=== PATIENT | male | born 1955 | race Hispanic/Latino ===

== ENCOUNTER 2024-04-04 17:02 | Emergency (ER) | payer OTHER ==
[~2024-04-04] VITALS: Ht 165.1 cm; Wt 83.0 kg
[2024-04-04 17:31] VITALS: BP 130/61; PULSE 62; RESP 20; TEMP 98.6; O2SAT 99
--- NOTE | 2024-04-04 17:40 | ERN ---
ED Note History of Present Illness Stated Complaint: SENT BY [place] Chief Complaint: Head Injury Time Seen by MD: 17:21 Time Seen by Midlevel: 17:21 Dictation: 69-year-old male presents to the emergency department due to reported having a severe headache to the left parietal area due to having sustained a fall 2 weeks ago in his house. Patient states that he tripped and landed on the left side of his head against the concrete for which he felt severely days. He denies having sustained any loss of consciousness associated with this. However, he is concerned that the headache has not gone away. At that time, he opted not to seek medical attention believing that the headache will go away. Since then, he denies having any nausea, vomiting or changes in vision but does report feeling some fogginess. Upon initial evaluation, patient presents with a normal neurologic examination. 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 Initial Vital Sign VS Vital Signs Date Time Temp Pulse Resp B/P (MAP) Pulse Ox O2 Delivery O2 Flow Rate FiO2 04/04/24 17:23 98.6 62 20 130/61 99 Room Air 0 04/04/24 17:31 21 Physical Exam Dictation General: awake, alert, NAD Head/Face: Normocephalic, tenderness to left parietal area Eyes: PERRL, EOMI ENT: Oral mucosa moist Neck: Trachea midline, supple Cardiovascular: RRR, no edema Respiratory: Symmetrical, non-labored Abdomen: Soft, non-tender, non-distended, no guarding. Skin: Warm, dry, good turgor, no rash MS/Extremity: Pulses equal, no cyanosis, neurovascular intact, FROM Neuro: COAx4, GCS 15, steady gait, Psych: Normal behavior, mood, and affect normal Results (Laboratory/Radiology) CT Scan Comment: CT of the head without contrast with no evidence of skull fracture or subdural trauma/intracerebral hemorrhage noted as interpreted by the radiologist. ED Course ED Course Orders Procedure Category Date Status Time Ct Head/Brain W/O CT 04/04/24 Resulted Contrast 17:33 Ketorolac 60mg/2ml PHA 04/04/24 Complete (Toradol 60mg/2ml) 18:30 Diphenhydramine Hcl PHA 04/04/24 Complete (Benadryl Inj) 18:30 Current Medications Medications (Trade) Dose Ordered Sig/Kostas Route PRN Reason Start Time Stop Time Status Last Admin Dose Admin Diphenhydramine HCl (BENAdryl INJ) 12.5 mg ONCE ONCE IM 04/04/24 18:30 04/04/24 18:31 DC 04/04/24 18:18 Ketorolac Tromethamine (toRADol 60MG/ 2ML) 15 mg ONCE ONCE IM 04/04/24 18:30 04/04/24 18:31 DC 04/04/24 18:18 Vital Signs Date Time Temp Pulse Resp B/P (MAP) Pulse Ox O2 Delivery O2 Flow Rate FiO2 04/04/24 17:31 98.6 62 20 130/61 99 Room Air* 0 21 04/04/24 17:23 98.6 62 20 130/61 99 Room Air 0 Medical Decision Making MDM MDM: Differential diagnosis: Subdural hematoma, intracerebral hemorrhage, skull fracture, concussion, closed head injury. Rationale: Tests considered and ordered secondary to shared decision making include: Previous outside records reviewed: Old ER visits. Risk of complication and/or morbidity or mortality of patient management: None Medications-Per medication reconciliation Need for hospitalization: Patient does not meet criteria for hospitalization. Need for emergency major/minor surgery: No There are no social concerns with this patient. Prescription drug management Prescriptions will include symptomatic care Patient's prior external medical records from other ER visits were reviewed by me as indicated. Prior testing and results from previous visits were reviewed. Prior tests were taken into account with medical decision making and resource utilization, independent historian/historians were used to obtain complete medical history. I independently interpreted the test that were performed, results were reviewed by me and considered findings on radiology if ordered. Medical management and examination interpretation discussions were had by me with other qualified healthcare professionals as indicated for the patient's care. DX & DISP Disposition: Discharge Departure Impression: Primary Impression: Closed head injury without loss of consciousness Condition: Stable Referrals: SELF,REFERRAL (PCP) Time of Disposition: 18:49 KASH FRAUSTO Apr 04, 2024 17:39
--- NOTE | 2024-04-04 18:13 | HMCIMG ---
CT HEAD WITHOUT CONTRAST INDICATION: Trauma TECHNIQUE: Noncontrast axial helical CT images from the vertex through the skull base using 5 mm slice thickness without contrast material. Coronal and sagittal reconstructions were also included. Dose reduction techniques was used using integrated, automated and adaptive dose reduction exposure control. CT was performed with one or more of the following dose reduction techniques: Automated exposure control, adjustment of the mA and/or kV according to patient size, or use of iterative reconstruction technique. COMPARISON: None FINDINGS: Scattered and coalescent subcortical and periventricular white matter low attenuating areas likely represent residual of chronic small vessel arteriopathy and/or remote vascular insult. Generalized mild cerebral cortical atrophy is present.. No evidence for abnormal extra-axial fluid collections or masses. The ventricles and sulci are normal in size and configuration. No evidence for intracranial parenchymal, epidural, or subdural hemorrhage, mass effect or midline shift. The lundberg-white matter differentiation is well preserved. No secondary evidence to suggest acute ischemia. Mild calcific plaque is present along the jefferson of the cavernous segments of both internal carotid arteries. The brainstem and cerebellum appear normal. The visualized orbits appear unremarkable. The visible paranasal sinuses and mastoid air cells are clear. The calvarium appears normal. IMPRESSION: Chronic white matter ischemic changes, mild brain atrophy, and arteriosclerotic disease as described, without acute component.
[2024-04-04] MEDS: DiphenhydrAMINE HCL 50 MG/ML VIAL IM ONE (18:18)
[2024-04-04] MEDS: ketOROlac 60 MG VIAL (30MG/ML) IM ONE (18:18)
== END 2024-04-04 19:30 | disposition home or self-care (01) ==
LOC: EDH 17:02
DX: S09.90XA Unspecified injury of head, initial encounter (principal); K21.9 Gastro-esophageal reflux disease without esophagitis; I10 Essential (primary) hypertension; W01.0XXA Fall on same level from slipping, tripping and stumbling without subsequent striking against object, initial encounter; Y93.89 Activity, other specified; Y92.89 Other specified places as the place of occurrence of the external cause; Y99.8 Other external cause status
CPT/HCPCS: 99285; 70450; 96372 ×2; J1200; J1885